=== PATIENT | female | born 1955 | race Caucasian/White ===

== ENCOUNTER → 2016-10-08 | Outpatient (CLI) | payer OTHER | LOC: FIMAGING 15:05 | PROVIDERS: ATTEND Internal Medicine Hematology & Oncology | DX: Z12.31 Encounter for screening mammogram for malignant neoplasm of breast (principal); Z85.3 Personal history of malignant neoplasm of breast | CPT/HCPCS: G0202 ==

== ENCOUNTER 2017-10-06 05:05 | Observation (INO) | payer OTHER ==
--- NOTE | 2017-10-06 05:08 | EDPHY ---
H & P Time Seen by Provider: 10/06/17 05:08 HPI/ROS: HPI CHIEF COMPLAINT: Palpitations "My heart is flip-flopping" HISTORY OF PRESENT ILLNESS: Patient is 6-year-old female, presents emergency room palpitations and stating that her heart is flip-flopping in her chest. She denies any chest pain or shortness of breath denies nausea vomiting neck pain or arm pain numbness or tingling or focal weakness. She states that she got up to use the bathroom around 4:00 a.m. Try to go back to bed to go to sleep but was unable to do so she felt her heart palpitating very irregular and "flip-flopping in her chest"she has never had this. She does have a history of breast cancer she completed chemotherapy and radiation, also had a lumpectomy of her right breast. She was on herceptin for while. No longer is. She is otherwise healthy. Past Medical History: Breast cancer Past Surgical History: Right lumpectomy Social History: Denies drugs alcohol tobacco. Family History: Noncontributory ROS REVIEW OF SYSTEMS: A comprehensive 10 point review of systems is otherwise negative aside from elements mentioned in the history of present illness. Exam Constitutional appears well nontoxic triage nursing summary reviewed, vital signs reviewed, awake/alert. Vital signs are noted at triage to be tachycardic and hypertensive Eyes normal conjunctivae and sclera, EOMI, PERRLA. HENT normal inspection, atraumatic, moist mucus membranes, no epistaxis, neck supple/ no meningismus, no raccoon eyes. Respiratory clear to auscultation bilaterally, normal breath sounds, no respiratory distress, no wheezing. Cardiovascular fast, irregular, irregular rhythm. Gastrointestinal soft, non-tender, no rebound, no guarding, normal bowel sounds, no distension, no pulsatile mass. Genitourinary no CVA tenderness. Musculoskeletal no midline vertebral tenderness, full range of motion, no calf swelling, no tenderness of extremities, no meningismus, good pulses, neurovascularly intact. Skin pink, warm, & dry, no rash, skin atraumatic. Neurologic awake, alert and oriented x 3, AAOx3, moves all 4 extremities equally, motor intact, sensory intact, CN II-XII intact, normal cerebellar, normal vision, normal speech. Psychiatric normal mood/affect. Heme/Lymph/Immune no lymphadenopathy. Differential diagnosis includes but is not limited to: AFib, AFib with RVR, SVT , other cardiac arrhythmia ACS, atypical chest pain, pneumothorax, pneumonia, pulmonary embolism, aortic dissection, congestive heart failure, tumor, musculoskeletal pain, esophageal pain, GERD, peptic ulcer disease, pancreatitis Medical Decision Making: Plan for this patient IV establishment full quality assurance monitor body obtain EKG and chest x-ray, rule out acute coronary syndrome, rule out V -tach or VFib. Re-evaluation: EKG interpretation by me on record in [employer] system. Impression time of EKG 5:16 a.m., this is AFib rate of [address] depression in the lateral leads V4 V5 V6 most likely rate-related. No ST elevation. 0522: Patient is in AFib with RVR. Patient be started on a diltiazem bolus 15 mg IV push, Dilt drip. Chest x-ray and blood work electrolytes. Most likely she will need hospital admission for AFib with RVR. ED x-ray chest one view clear lung lungs bilaterally. No infiltrate. No pneumothorax. No cardiomegaly heart size normal. 0600: Spoke with the hospitalist service Dr. Gutierrez, agrees to admit this patient for AFib with RVR. She has received 15 mg IV Dilt bolus, as well as on the Dilt drip. EKG interpretation by me on record in [employer] system. Impression this is a repeat EKG time of EKG 6:03 a.m., sinus rhythm rate of [address] elevation. This is post 15 mg IV diltiazem bolus and diltiazem drip. Back in normal sinus rhythm. Source: Patient Constitutional: Initial Vital Signs Temperature (C) 36.5 C 10/06/17 05:06 Heart Rate 115 H 10/06/17 05:06 Respiratory Rate 18 10/06/17 05:06 Blood Pressure 161/131 H 10/06/17 05:06 O2 Sat (%) 98 10/06/17 05:06 O2 Delivery Mode Nasal Cannula O2 (L/minute) 2 Allergies/Adverse Reactions: meperidine [From Demerol] Allergy (Verified 10/06/17 05:10) Home Medications: Medication Instructions Recorded Ascorbic Acid [Vitamin C 500 mg 500 mg PO DAILY 10/06/17 (*)] Aspirin [Aspirin 81mg (*)] 81 mg PO DAILY #1 tab 10/06/17 Cholecalciferol Vit D3 [Vitamin D3 1,000 units PO DAILY 10/06/17 (*)] Diltiazem [Cardizem Ir Q6hr] 30 mg PO Q6 PRN #30 tab 10/06/17 Magnesium Oxide [Magnesium Oxide 400 mg PO HS 10/06/17 400 mg (*)] Melatonin [Melatonin 3 MG (*)] 3 mg PO HS 10/06/17 Niacin [Niacin 500 mg (*)] 500 mg PO HS 10/06/17 Hammond-3 Fatty Acids [Fish Oil 1000 1,000 mg PO DAILY 10/06/17 mg (*)] Medical Decision Making - Data Points Laboratory Results: Laboratory Results 10/06/17 05:18 10/06/17 05:18 Medications Given: Discontinued Medications Diltiazem HCl (Cardizem 25 Mg/5 Ml Vial) 15 mg IVP EDNOW ONE Stop: 10/06/17 05:20 Last Admin: 10/06/17 05:22 Dose: 15 mg Sodium Chloride (Ns) 1,000 mls @ 0 mls/hr IV EDNOW ONE; Wide Open PRN Reason: Protocol Stop: 10/06/17 05:12 Last Admin: 10/06/17 05:22 Dose: 1,000 mls Diltiazem HCl 125 mg/ Dextrose 125 mls @ 0 mls/hr IV EDNOW ONE; As Directed PRN Reason: Protocol Stop: 10/06/17 05:20 Last Admin: 10/06/17 05:50 Dose: 125 mls Sodium Chloride (Ns) 1,000 mls @ 0 mls/hr IV ONCE ONE PRN Reason: Wide Open Stop: 10/06/17 06:07 Last Admin: 10/06/17 06:07 Dose: 1,000 mls Departure - Departure Disposition: [facility] Acute Clinical Impression: Atrial fibrillation with RVR Condition: Good
[2017-10-06] MEDS ORDERED: NS 1,000 ML IV ONE ×2 (05:11→06:06)
--- NOTE | 2017-10-06 05:18 | CPEKG ---
Heart Rate: 134 RR Interval: 448 QRSD Interval: 84 QT Interval: 312 QTC Interval: 466 QRS Funk: 70 T Wave Funk: -55 EKG Severity - ABNORMAL ECG - EKG Impression: ATRIAL FLUTTER WITH 2:1 AV BLOCK PREDOMINATELY, SOMETIMES VARIABLE CONDUCTION EKG Impression: NONSPECIFIC ST_T WAVE ABNORMAILITES LIKELY RELATED TO FLUTTER WAVES Electronically Signed By: Checo Urbina 07-Oct-2017 13:42:41
[2017-10-06] MEDS ORDERED: DILTIAZEM 125 MG in D5W 125 ML IV ONE (05:19)
[2017-10-06] MEDS ORDERED: DILTIAZEM 50 MG/10 ML VIAL IV ONE (05:19)
[2017-10-06] MEDS ORDERED: DILTIAZEM 25 MG/5 ML VIAL IVP ONE (05:19)
[2017-10-06 05:24] LABS: PLATELET COUNT 196 10^3/uL (150-400)
[2017-10-06 05:33] LABS: INR 0.87 (0.83-1.16); PROTIME(PATIENT) 12.1 SEC (12.0-15.0)
[2017-10-06 05:39] LABS: CREATINE KINASE 59 IU/L (0-156)
--- NOTE | 2017-10-06 06:05 | CPEKG ---
Heart Rate: 74 RR Interval: 811 P-R Interval: 148 QRSD Interval: 90 QT Interval: 416 QTC Interval: 462 P Tilton: 42 QRS Tilton: 69 T Wave Tilton: -4 EKG Severity - NORMAL ECG - EKG Impression: SINUS RHYTHM Electronically Signed By: Checo Urbina 07-Oct-2017 13:39:45
[2017-10-06] MEDS ORDERED: ACETAMINOPHEN 325 MG TAB PO PRN (06:12)
[2017-10-06] MEDS ORDERED: ONDANSETRON 4 MG/2 ML VIAL IVP PRN (06:12)
[2017-10-06] MEDS ORDERED: NS 1,000 ML IV SCH (06:15)
[2017-10-06] MEDS ORDERED: DILTIAZEM 125 MG in D5W 125 ML IV SCH (06:30)
[2017-10-06 06:47] VITALS: PULSE 86; RESP 17; TEMP 98.2; O2SAT 97
[2017-10-06] MEDS ORDERED: DILTIAZEM HCL/D5W 125 ML IV SCH (07:00)
--- NOTE | 2017-10-06 07:27 | PDGENHP ---
History and Physical - Chief Complaint palpitations - History of Present Illness Source - patient provides history appears reliable. EMR reviewed and case discussed with ED provider. HPI - Pleasant 62 yo F with pmx significant for remote breast ca in remission s/ p lumpectomy, xrt, chemo 2 years ago who presents emergency department today with complaints of new onset palpitations for approximately 90 more minutes before arrival. Patient reports that she was in her usual state of health until early this morning when she got up to go to the bathroom. She returned and went try to go back to sleep but found that she was feeling like her heart was sleeping and flopping. She denies any associated shortness of breath chest pain. She had no associated nausea, vomiting, diaphoresis. She has had no history of orthopnea, lower extremity edema or PND. Patient reports that her last echocardiogram was 2 years ago she was monitored very closely on while on Herceptin therapy for breast cancer. She reports that she has always been normal. Family history is positive for father with coronary artery disease and history CABG older age. As well as diabetes in the family. Patient herself otherwise reports that she is overall healthy. She remains active and has not had any anginal type symptoms preceding today's events. Stress test last year was within normal limits per patient report. History Information - Allergies/Home Medication List Allergies/Adverse Reactions: meperidine [From Demerol] Allergy (Verified 10/06/17 05:10) Home Medications: Ascorbic Acid [Vitamin C 500 mg (*)] 500 mg PO DAILY 10/06/17 [Last Taken Unknown] Cholecalciferol Vit D3 [Vitamin D3 (*)] 1,000 units PO DAILY 10/06/17 [Last Taken Unknown] Herbals/Supplements -Info Only 1 ea PO DAILY 10/06/17 [Last Taken Unknown] Magnesium Oxide [Magnesium Oxide 400 mg (*)] 400 mg PO HS 10/06/17 [Last Taken Unknown] Melatonin [Melatonin 3 MG (*)] 3 mg PO HS 10/06/17 [Last Taken Unknown] Niacin [Niacin 500 mg (*)] 500 mg PO HS 10/06/17 [Last Taken Unknown] Galva-3 Fatty Acids [Fish Oil 1000 mg (*)] 1,000 mg PO DAILY 10/06/17 [Last Taken Unknown] I have personally reviewed and updated: family history, medical history, social history, surgical history - Past Medical History Additional medical history: History of breast cancer status post lumpectomy, XRT , chemotherapy with Herceptin. History chocolate ovarian cyst ablated - Surgical History Additional surgical history: Right lumpectomy, abdominal procedure for ovarian cyst hemorrhage - Social History Smoking Status: Never smoked Alcohol Use: Rarely Drug Use: None Additional social history: Patient is and lives with her Bob. Howe-full Review of Systems Review of Systems: ROS: 10pt was reviewed & negative except for what was stated in HPI & below Constitutional: Reports: no symptoms. Denies: chills, fever, recent illness Cardiac: Reports: palpitations. Denies: chest pain, edema, lightheadedness, syncope Respiratory: Denies: cough, shortness of breath Gastrointestinal: Denies: vomitting, nausea Genitourinary: Denies: dysuria, hematuria Muscolosketal: Denies: joint pain, muscle pain Skin: Reports: other (Patient complaining of some pain in her right IV site in her hand.). Denies: lesions, rash Neurological: Reports: no symptoms. Denies: tremors, weakness Hematologic/Lymphatic: Reports: no symptoms Physical Exam Physical Exam: Selected Entries 10/06/17 05:06 Blood Pressure Automatic Method Heart Rate 115 H Respiratory 18 Rate O2 Sat (%) 98 Temperature (C) 36.5 C Blood Pressure 161/131 H Mean Arterial 141 H Pressure (MAP) O2 Delivery Room Air Mode Temperature Oral Source Temp Pulse Resp BP Pulse Ox 36.8 C 86 17 149/89 H 97 10/06/17 06:34 10/06/17 06:34 10/06/17 06:34 10/06/17 06:34 10/06/17 06:34 O2 (L/minute) 2 Constitutional: no apparent distress, obese, other (NAD. Very pleasant adult female is sitting up in bed. is at bedside.), No uncomfortable Eyes: PERRL, anicteric sclera, EOMI, No scleral injection Ears, Nose, Mouth, Throat: moist mucous membranes, No no oral mucosal ulcers, No poor dentition Cardiovascular: regular rate and rhythym, no murmur, rub, or gallop, pulses symmetric bilaterally, No systolic murmur, No tachycardia, No edema Peripheral Pulses: 2+: dorsalis-pedis (R), dorsalis-pedis (L) Respiratory: no respiratory distress, no rales or rhonchi, clear to auscultation , No reduced air movement, No expiratory wheeze Gastrointestinal: normoactive bowel sounds, soft, non-tender abdomen, no palpable masses, No baird's sign, No guarding, No distension Genitourinary: no bladder tenderness, No quesada in urethra Skin: normal color, No rash Musculoskeletal: full muscle strength, No generalized weakness (Grossly normal strength. Patient is able to sit up independently. Strength in upper lower extremities 5/5.) Neurologic: AAOx3, sensation intact bilaterally, CN II-XII Intact (Grossly nonfocal exam.), No weakness, No facial droop Psychiatric: interacting appropriately, not encephalopathic, anxious, No poor insight, No poor judgement, No poor memory Lab Data & Imaging Review 10/06/17 05:18 10/06/17 05:18 WBC 6.52 10^3/uL (3.80-9.50) 10/06/17 05:18 RBC 5.11 10^6/uL (4.18-5.33) 10/06/17 05:18 Hgb 16.2 g/dL (12.6-16.3) 10/06/17 05:18 Hct 46.9 % (38.0-47.0) 10/06/17 05:18 MCV 91.8 fL (81.5-99.8) 10/06/17 05:18 MCH 31.7 pg (27.9-34.1) 10/06/17 05:18 MCHC 34.5 g/dL (32.4-36.7) 10/06/17 05:18 RDW 12.3 % (11.5-15.2) 10/06/17 05:18 Plt Count 196 10^3/uL (150-400) 10/06/17 05:18 MPV 10.3 fL (8.7-11.7) 10/06/17 05:18 Neut % (Auto) 38.9 % (39.3-74.2) L 10/06/17 05:18 Lymph % (Auto) 47.2 % (15.0-45.0) H 10/06/17 05:18 Buchanan % (Auto) 10.0 % (4.5-13.0) 10/06/17 05:18 Eos % (Auto) 2.8 % (0.6-7.6) 10/06/17 05:18 Baso % (Auto) 0.6 % (0.3-1.7) 10/06/17 05:18 Nucleat RBC Rel Count 0.0 % (0.0-0.2) 10/06/17 05:18 Absolute Neuts (auto) 2.54 10^3/uL (1.70-6.50) 10/06/17 05:18 Absolute Lymphs (auto) 3.08 10^3/uL (1.00-3.00) H 10/06/17 05:18 Absolute Monos (auto) 0.65 10^3/uL (0.30-0.80) 10/06/17 05:18 Absolute Eos (auto) 0.18 10^3/uL (0.03-0.40) 10/06/17 05:18 Absolute Basos (auto) 0.04 10^3/uL (0.02-0.10) 10/06/17 05:18 Absolute Nucleated RBC 0.00 10^3/uL (0-0.01) 10/06/17 05:18 Immature Gran % 0.5 % (0.0-1.1) 10/06/17 05:18 Immature Gran # 0.03 10^3/uL (0.00-0.10) 10/06/17 05:18 PT 12.1 SEC (12.0-15.0) 10/06/17 05:18 INR 0.87 (0.83-1.16) 10/06/17 05:18 APTT 28.5 SEC (23.0-38.0) 10/06/17 05:18 D-Dimer 0.40 ug/mLFEU (0.00-0.50) 10/06/17 05:18 Sodium 146 mEq/L (135-145) H 10/06/17 05:18 Potassium 4.9 mEq/L (3.5-5.2) 10/06/17 05:18 Chloride 106 mEq/L (97-110) 10/06/17 05:18 Carbon Dioxide 25 mEq/l (22-31) 10/06/17 05:18 Anion Gap 15 mEq/L (8-16) 10/06/17 05:18 BUN 20 mg/dL (7-23) 10/06/17 05:18 Creatinine 0.7 mg/dL (0.6-1.0) 10/06/17 05:18 Estimated GFR > 60 10/06/17 05:18 Glucose 96 mg/dL (70-100) 10/06/17 05:18 Calcium 9.4 mg/dL (8.5-10.4) 10/06/17 05:18 Magnesium 2.2 mg/dL (1.6-2.3) 10/06/17 05:18 Total Bilirubin 1.0 mg/dL (0.1-1.4) 10/06/17 05:18 Conjugated Bilirubin 0.3 mg/dL (0.0-0.5) 10/06/17 05:18 Unconjugated Bilirubin 0.7 mg/dL (0.0-1.1) 10/06/17 05:18 AST 39 IU/L (14-46) 10/06/17 05:18 ALT 52 IU/L (9-52) 10/06/17 05:18 Alkaline Phosphatase 95 IU/L (38-126) 10/06/17 05:18 Creatine Kinase 59 IU/L (0-156) 10/06/17 05:18 CK-MB (CK-2) Fraction 0.49 ng/mL (0.00-3.19) 10/06/17 05:18 Troponin I < 0.012 ng/mL (0.000-0.034) 10/06/17 05:18 NT-Pro-B Natriuret Pep 57 pg/mL (0-125) 10/06/17 05:18 Total Protein 7.4 g/dL (6.3-8.2) 10/06/17 05:18 Albumin 4.6 g/dL (3.5-5.0) 10/06/17 05:18 EKG additional interpertation: Initial EKG showing atrial fibrillation with RVR rate in the 150s. Associated ST depressions likely due to rate. Patient also with some PVCs. Repeat EKG was myself showing normal sinus rhythm. T-wave inversion in lead 3 and flattening in AV F Assessment & Plan Assessment: A/P: Pleasant 62-year-old female with the history of breast cancer in remission status post lumpectomy, XRT, chemotherapy with Herceptin completed 2 years ago who now presents with complaints of palpitations Atrial fibrillation with RVR (Acute) - patient was given a diltiazem bolus subsequently followed by a diltiazem drip. Her heart rate did decline and she ultimately was able to convert to normal sinus rhythm. She has no previous history of CHF on or hypertension. Echocardiogram has been ordered. TSH was within normal limits. Patient was previously normal echocardiograms and a stress test that was reported to be normal 1 year ago. Cardiology will be consulted in the morning as per day team she will require rate control at discharge. Will hold off on anticoagulation pending Cardiology recommendations echocardiogram. Hypernatremia-patient with mildly elevated sodium this is likely related to some dehydration. Patient is receiving IV fluids as noted above not significantly elevated that would need to on repeat BMP. History of breast cancer in remission FEN - status post IV fluid in the emergency department will continue for some gentle hydration. Electrolyte monitoring and replacement p.r.n.. Advance diet to regular as tolerated. Cor status-full Disposition-patient will be admitted to observation status on PCU floor as she has converted quite quickly initially anticipate she may require prolonged use of a diltiazem drip. Will await further recommendations and evaluation by Cardiology.
[2017-10-06 08:16] VITALS: BP 121/65
--- NOTE | 2017-10-06 10:15 | ECHO ---
[email or web address] [address] [address] Main: [phone] Fax: Transthoracic Echocardiogram Name: DB PATEL MR#: [id number] Study Date: 10/06/2017 Study Time: 07:45 AM Date of : 1955 Age: 62 year(s) Height: 170.2 cm (67 in.) Weight: 86.64 kg (191 lb.) BSA: 1.98 m2 Gender: Female Examination: Echo Indication: Atrial fibrillation/sinus now/hx breast CA Image Quality: Contrast: Requested by: Mally Gutierrez BP: 149 mmHg/89 mmHg Heart Rate: Rhythm: Indication: Atrial fibrillation/sinus now/hx breast CA Procedure Staff Buzzle Buffer: Nguyen Carpenter RDCS Reading Physician: Rachel Quintero MD Requesting Provider: Varun Umaña Conclusions: Normal size left ventricle. No LV hypertrophy. Normal global systolic LV function. The ejection fraction is estimated to be 65-70 %. No regional wall motion abnormality. Normal size right ventricle. Normal RV function. No significant valvular disease No prior echo Measurements: Chambers Valvular Assessment AV/MV Valvular Assessment TV/PV Normal Normal Normal Name Value Range Name Value Range Name Value Range Ao Ashley (2D): 3.5 cm (1.4 cm-2.6 AV meanP mmHg ( - ) cm) MV E Vmax: 0.68 m/s ( - ) IVSd (2D): 0.7 cm (0.6 cm-1.1 MV A Vmax: 0.87 m/s ( - ) cm) MV E/A: 0.78 ( - ) LVDd (2D): 4.7 cm (3.9 cm-5.3 cm) LVDs (2D): 3.0 cm (2.1 cm-4 cm) LVPWd (2D): 0.9 cm ( - ) LVEF (MOD4): 65 % (>=55 %) EF Range: 65-70 % Continued Measurements: Chambers Valvular Assessment AV/MV Patient: DB PATEL Study Date: 10/06/2017 Page 1 of 2 07:45 AM Name Value Name Value LADs: 3.5 cm MV E/E' Septal: 10.70 LADs Lon.8 cm MV E/E' Lateral: 8.40 LA Area: 16.1 cm2 Findings: Left Ventricle: Normal size left ventricle. No LV hypertrophy. Normal global systolic LV function. The ejection fraction is estimated to be 65-70 %. No regional wall motion abnormality. Right Ventricle: Normal size right ventricle. Normal RV function. Left Atrium: The left atrium is normal in size. Right Atrium: The right atrium is normal in size. Mitral Valve: The mitral valve is normal in appearance and function. Trivial mitral valve regurgitation. Aortic Valve: The aortic valve is normal in appearance and function. The aortic valve is tri-leaflet. Tricuspid Valve: The tricuspid valve is normal in appearance and function. Trivial tricuspid valve regurgitation. Pulmonic Valve: The pulmonic valve is normal in appearance and function. Aorta: The aorta is normal. Pericardium: No pericardial effusion. (No Signature Object) Patient: DB PATEL Study Date: 10/06/2017 Page 2 of 2 07:45 AM D:_[id number]
--- NOTE | 2017-10-06 10:33 | ASDISCHSUM ---
Discharge Information Plan Status:Home with No Needs Medically Cleared to Leave:10/06/2017 Discharge Date:10/06/2017 CM D/C Disposition:Home, Routine, Self-Care ADT D/C Disposition:Home, Routine, Self-Care Projected Discharge Date:10/06/2017 Transportation at D/C:Family Discharge Delay Reason: Follow-Up Date:10/06/2017 Discharge Slot: Final Diagnosis: Placement Information Patient Contact Information Contact Name:SAIDA Relationship: Address:[address] City:[place] Alternate Phone: [facility]/Zip Code:[place] [address] Email: Financial Information Financial Class:HMO and PPO Plans Primary Plan Desc:[employer] PPO Primary Plan Number:[id number] Secondary Plan Desc: Secondary Plan Number: Assessment Information LACE LACE Length of stay for Answers: Less than 1 day current admission Acuity / Level of Answers: No Care: Did the patient have an inpatient admission? Comorbidities - select Answers: Any tumor (including all that apply lymphoma or leukemia) # of Emergency department Answers: 0 visits in the last 6 months Score: 2 Date Signed: 10/06/2017 10:32 AM Electronically Signed By:Marcella Vann RN Intervention Information
--- NOTE | 2017-10-06 10:37 | GCON ---
[f rep st] CONSULTATION CARDIOLOGY CONSULT DATE OF CONSULTATION: 10/06/2017 PRIMARY ONCOLOGIST: Christiano Rivera MD CHIEF COMPLAINT: Atrial fibrillation. HISTORY OF PRESENT ILLNESS: We were asked by Dr. Umaña to visit with this patient. The patient is a pleasant 62-year-old female with a history of breast cancer treated with chemo including Herceptin as well as radiation therapy. This finished, I believe, in 2014. She also has a history of melanoma resection. She has no cardiovascular history that she knows of, but her father did have premature c oronary disease. She was in her usual state of good health until early this morning. She woke up, as is her usual cus gretchen to use the bathroom, at around 4 a.m., and she could not go back to sleep. She was lying in bed and had sudden onset of palpitations described as a flip-flopping in her chest. She has never had th is symptom before. She denies any associated chest pressure, presyncope, syncope, or dyspnea. Becau se of the symptoms, she presented to the ER and was found to be in atrial fibrillation with rapid gilberto tricular response. She was started on a diltiazem drip and converted to normal sinus rhythm. She wa s admitted for observation. She reports that she now feels back to baseline. She walks 45 minutes most days of the week and has no cardiovascular symptoms with exercise. She tel ls me that she had a stress test at the [facility] about a year ago due to some chest bur [place], and she was told this was a normal study. She drinks alcohol infrequently, usually about once a month. On Friday evening, she did have 2 gla sses of champagne. She also takes several supplements, more than 20. REVIEW OF SYSTEMS: A full 10-point review of systems was performed and is negative except that which is outlined in the History of Present Illness, and in addition, she does get some bilateral lower de pendent edema. PAST MEDICAL HISTORY: 1. Breast cancer detailed above. 2. History of melanoma resection. 3. History of ovarian cyst ablation. MEDICATIONS: As an outpatient include multiple supplements including vitamin C, high-dose vitamin D, coenzyme Q10, niacinamide, and then several others which she cannot recount at the moment. SOCIAL HISTORY: The patient is , and her is at bedside. She drinks alcohol rarely as detailed above. She does not smoke cigarettes. FAMILY HISTORY: Father had a coronary bypass in his 50s. PHYSICAL EXAM: VITAL SIGNS: Blood pressure is 121/65, heart rate is 86, oxygen saturation is 97% on room air. She is afebrile. Telemetry reveals normal sinus rhythm. GENERAL: Well-appearing, middl e-aged female in no acute distress. HEENT: Sclerae clear. No jaundice. Mucous membranes are moist . Normocephalic, atraumatic. CARDIOVASCULAR: JVP is less than 10. Carotids equal and 2+ without b ruit. Regular rate and rhythm without murmur or gallop. LUNGS: Clear to auscultation bilaterally w ithout wheeze, rhonchi, or rales. ABDOMEN: Soft, nontender, nondistended without bruits, masses, or hepatosplenomegaly. EXTREMITIES: Warm, well perfused without cyanosis, clubbing, or edema. DIAGNOSTIC STUDIES: EKG reviewed by me initially shows atrial fibrillation with rapid ventricular re sponse and diffuse repolarization abnormalities. Second EKG shows sinus rhythm with nonspecific ante rior T-wave abnormalities. Chest x-ray reviewed by me. No acute cardiopulmonary process. Echocardiogram reviewed by me. Sherrie l LV size and systolic function with normal wall motion. No significant valvular disease. LABORATORY DATA: CBC is normal except for slightly high lymphocyte count. D-dimer negative. INR 0. 87. Sodium 146, potassium 4.9, chloride 106, bicarb 25, BUN 20, creatinine 0.7. Magnesium 2.2. LFT s normal. Troponin is negative x1. BNP is 57. TSH is normal. ASSESSMENT AND PLAN: A 62-year-old female with her first documented episode of atrial fibrillation. Trigger may have been 2 glasses of alcohol in combination with her multiple dietary supplements. Th yroid is normal; she does not appear to be having cardiac ischemia, no heart failure, no valvular dis ease. Unlikely that she has sleep apnea. 1. Atrial fibrillation: She is currently in sinus rhythm. Given that this is her first episode, I do not think she requires daily rate-controlling medication or an antiarrhythmic drug. I have recomm ended diltiazem 30 mg immediate release to be used as needed for recurrent episodes of atrial fibrill ation. Her CHADS2-VASc score is 0; therefore, I think aspirin 81 mg daily is reasonable at this poin t. She can be discharged today. We would like to obtain the results of her stress test from [facility]. She will have a 30-day event recorder to make sure she is not having occult atrial fibrillation. I will follow up with her after that. 2. History of breast cancer: She is followed by Dr. Rivera and has followup with him in the near fut ure. Thank you for allowing us to participate in this patient's care. Outpatient followup as detailed abo ve. Case discussed with Dr. Umaña. /[id number]/MODL
--- NOTE | 2017-10-06 12:57 | PDDCSUM ---
Discharge Summary Discharge Summary: DISCHARGE DIAGNOSES: -paroxysmal atrial fibrillation with rapid ventricular rate -prior history of breast cancer in remission after chemotherapy CONSULTANTS: Dr. Rachel Quintero PROCEDURES: Echocardiogram which was normal HOSPITAL COURSE SUMMARY: This patient came to the emergency room complaining of rapid heart rate with flutters and palpitations in the chest. She is found to have rapid atrial fibrillation and atrial flutter with heart rates as high as 150. This did after some time of observation here spontaneously converted to sinus rhythm where she has remained. She has had no symptoms to suggest ischemia, no EKG changes or troponin abnormalities other than the rapid heart rate. The there is no sign of heart failure. She is not an alcohol drinker of significance but did have 2 glasses of champagne a couple of days before this episode. With found no other specific triggers or causative features in her story. At this point the patient is stable in a sinus rhythm with no abnormal vital signs and no heart failure. She is stable to go home. She has a chads Vasc score of 0-1 and at this point is recommended after alone episode of unprovoked brief AFib that she take a daily aspirin at 81 mg. I have given her prescription for diltiazem to take if needed for future episodes with rapid rate. She will follow up with Dr. Rachel Quintero and will have a orthotist to 5 look for any future episodes of atrial fibrillation so that we can qualify her disease a bit more. 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
== END 2017-10-06 11:18 | disposition home or self-care (01) ==
LOC: INTOOBSV 05:52 → F2W 06:31
PROVIDERS: ADMIT Family Medicine; ATTEND Family Medicine
DX: I48.0 Paroxysmal atrial fibrillation (principal); E87.0 Hyperosmolality and hypernatremia; Z85.3 Personal history of malignant neoplasm of breast
CPT/HCPCS: 71045; 93005; 93306; G0378

== ENCOUNTER → 2017-10-09 | Outpatient (CLI) | payer OTHER | LOC: FIMAGING 15:49 | PROVIDERS: ATTEND Internal Medicine Hematology & Oncology | DX: Z12.31 Encounter for screening mammogram for malignant neoplasm of breast (principal); Z85.3 Personal history of malignant neoplasm of breast ==

== ENCOUNTER → 2018-11-10 | Outpatient (CLI) | payer OTHER | LOC: FIMAGING 14:51 | PROVIDERS: ATTEND Internal Medicine Hematology & Oncology | DX: C50.111 Malignant neoplasm of central portion of right female breast (principal); Z17.0 Estrogen receptor positive status [ER+] ==